=== PATIENT | female | born 1965 | race African-American/Black ===

== ENCOUNTER 2017-07-30 15:29 | Emergency (ER) | payer MEDICAID ==
[~2017-07-30] VITALS: Ht 162.6 cm; Wt 121.0 kg
[~2017-07-30 15:29] MED LIST: ASPI-1159 PO; CARI350T PO; DIPH25CA83 PO; DOXY100T2 PO; FERR-43 PO; FOLI-43 PO; FURO80TA3 PO; HCTZ PO; HYDR-519 PO; HYDR25TA PO; METH25VI11 AD; METOPROLOL; MONT10TA24 PO; NITR0.4T49 SL; PREDNISONE PO
[2017-07-30 15:35] VITALS: BP 117/84
[2017-07-30] MEDS ORDERED: ACETAMINOPHEN 500MG TABLET PO ONE (16:00)
== END 2017-07-30 17:06 | disposition home or self-care (01) ==
LOC: ER 15:52
DX: M25.562 Pain in left knee (principal); W01.0XXA Fall on same level from slipping, tripping and stumbling without subsequent striking against object, initial encounter; I11.0 Hypertensive heart disease with heart failure; I50.9 Heart failure, unspecified; M06.9 Rheumatoid arthritis, unspecified; F17.200 Nicotine dependence, unspecified, uncomplicated; H54.62 Unqualified visual loss, left eye, normal vision right eye; Z88.2 Allergy status to sulfonamides; Z95.1 Presence of aortocoronary bypass graft; Z79.82 Long term (current) use of aspirin; Z96.652 Presence of left artificial knee joint
CPT/HCPCS: 73562; 99284